=== PATIENT | male | born 2000 | race Caucasian/White ===

== ENCOUNTER 2021-05-17 17:40 | Emergency (ER) | payer MEDICAID, SELFPAY ==
[2021-05-17 17:40] VITALS: BP 116/76; PULSE 67; RESP 18; TEMP 35.9; O2SAT 97; BMI 28.7
--- NOTE | 2021-05-17 17:48 | RAD_ITS ---
STUDY: X-RAY - RIGHT FOOT CLINICAL: Male, 21 years old. INJURY right foot injury dropped object on it TECHNIQUE: 3 view(s) of the foot. COMPARISON: None. FINDINGS: Normal talus, calcaneus, and tarsal bones. Normal visualized subtalar, talonavicular, calcaneocuboid, tarsal and tarsometatarsal articulations. Normal metatarsi. Normal metatarsophalangeal joint of the great toe. Normal tibial and fibular sesamoid bones. Normal interphalangeal joint of the great toe. Normal phalanges of the great toe. Normal second through fifth metatarsophalangeal joints. Normal interphalangeal joints and phalanges of the lesser toes. The soft tissue structures are unremarkable. RAD/Foot min 3 Views IMPRESSION: Normal x-ray examination of the foot. Electronically Signed: Vasyl Chopra MD at 18:36 EDT Tel , Service support ,
--- NOTE | 2021-05-17 18:59 | ED.VIS.LOWEX ---
HPI History of Present Illness Chief Complaint: Lower Extremity Injury Informant: patient Occured/Mechanism Mechanism/Context: Yes injury Onset/Context/Timing Onset: Today Current Severity: Mild Maximum Severity: Moderate Narrative Narrative: Patient presents with right foot injury. He was barefoot when a cover for an organ/piano fell onto his foot. He has abrasions to the fourth and fifth toes with pain. He reports his tetanus is up-to-date. PFSH PFSH Medical History no medical history no medical history ROS ROS ED Constitutional Constitutional ED: Denies chills or fever(s) Eyes Eyes: Denies change in vision ENT ENT ED: Denies sore throat Cardiovascular Cardiovascular: Denies chest pain Respiratory/Chest Respiratory/Chest: Denies cough or dyspnea Gastrointestinal Gastrointestinal: Denies abdominal pain Genitourinary Genitourinary ED: Denies dysuria Musculoskeletal Musculoskeletal: Reports arthralgias; Denies back pain Integumentary Reports Abrasions; Denies rash Neurologic Neurologic: Denies headache(s) or weakness Allergic/Immunologic Allergic/Immunologic ED: Denies urticaria EXAM Physical Exam Const Vital Signs: 05/17/21 17:40 Temperature 96.7 F L Temperature Source Temporal Pulse Rate 67 Respiratory Rate 18 Blood Pressure 116/76 Blood Pressure Mean 89 Pulse Ox 97 Oxygen Delivery Method Room Air Positive well nourished and well developed General Appearance ED: well developed HEENT Reports normocephalic and head/scalp atraumatic Eyes PERRL and EOMs intact bilaterally Neck supple Chest Wall inspection of chest normal and palpation of chest normal Resp normal respiratory effort and clear to auscultation bilaterally Cardio regular rate and regular rhythm GI normal to inspection, nondistended, normoactive bowel sounds Palpation: soft Extremity Extremity Narrative: Abrasions over the fourth and fifth toes. No active bleeding. No bony tenderness over the midfoot. Strong distal pulses and normal cap refill. Neuro oriented x3 Sensorium / Orientation: alert Psych mental status grossly normal Skin Skin Narrative: Abrasions as noted above. MDM MDM MDM Narrative Medical decision making narrative: Foot x-ray obtained per nursing protocol. Radiography Diagnostic Testing: Clinical Impression(s) from Imaging Studies Foot X-Ray 05/17/21 17:48 IMPRESSION: Normal x-ray examination of the foot. Electronically Signed: Vasyl Chopra MD at 18:36 EDT Tel , Service support , Treatment and Re-Evaluation Comments:: Right foot x-ray per my interpretation reveals no fracture. Radiologist rotation is reviewed. Test results discussed with patient. Wound is cleansed and dressed. He is advised to keep the wound covered. He may weight-bear as tolerated. Discharge Plan Triage Chief Complaint: Lower Extremity Injury ED Provider: Lesa Ellison Dx/Rx/DC Orders Clinical Impression: Crush injury of right foot Instructions: ED Foot Contusion Referrals: Debbie Khan MD [STAFF PHYSICIAN] - As Needed Disposition Disposition: Home, Self Care
[2021-05-17 19:08] VITALS: O2SAT 18
== END 2021-05-17 19:13 | disposition home or self-care (01) ==
LOC: ED 19:05
PROVIDERS: Emergency Provider Emergency Medicine
DX: S97.81XA Crushing injury of right foot, initial encounter (principal); S90.414A Abrasion, right lesser toe(s), initial encounter; W20.8XXA Other cause of strike by thrown, projected or falling object, initial encounter; Y93.9 Activity, unspecified; Y92.9 Unspecified place or not applicable; Y99.9 Unspecified external cause status
CPT/HCPCS: 73630; 99282